=== PATIENT | female | born 1975 | race Caucasian/White ===

== ENCOUNTER 2018-01-27 13:32 | Emergency (ER) | payer MEDICAID ==
[~2018-01-27] VITALS: Ht 162.6 cm; Wt 55.0 kg
[~2018-01-27 13:32] MED LIST: [UNRECOGNIZED DRUG - REMARK]
[2018-01-27 15:19] LABS: BASOPHILS % 1.1 % (0.0-2.0); EOSINOPHILS % 2.7 % (0.0-5.0); HEMATOCRIT. 25.5 % (36.0-48.0); HEMOGLOBIN. 8.5 g/dL (12.0-16.0); LYMPHOCYTES % 22.7 % (20.0-50.0); MEAN CORPUSCULAR HEMOGLOBIN 30.1 pg (28.0-32.0); MEAN CORPUSCULAR VOLUME 90.2 fL (81.0-99.0); MEAN PLATELET VOLUME 7.9 fl (7.4-10.4); MONOCYTES % 7.9 % (2.0-8.0); NEUTROPHILS % 65.6 % (40.0-76.0); PLATELET 272 x1000/uL (130-400); RED BLOOD CELL COUNT 2.83 mill/uL (4.2-5.4); RED CELL DISTRIBUTION WIDTH 15.5 % (11.6-14.6)
[2018-01-27 15:25] LABS: CHLORIDE 108 mEq/L (98-107)
[2018-01-27 15:27] LABS: PROTHROMBIN TIME 10.5 sec (9.4-11.6)
[2018-01-27 15:36] LABS: B-HCG QUANTITATIVE < 1 mIU/mL (<3)
[2018-01-28 08:59] VITALS: BP 107/59
== END 2018-01-28 09:04 | disposition home or self-care (01) ==
LOC: ER 16:05
DX: N93.9 Abnormal uterine and vaginal bleeding, unspecified (principal); R10.2 Pelvic and perineal pain
CPT/HCPCS: 36415; 76830; 76856; 80053; 83690; 84702; 85025; 85610; 86850; 86900; 93005; 99285

== ENCOUNTER 2019-04-05 17:22 | Emergency (ER) | payer MEDICAID | END 2019-04-05 18:48 | disposition left against medical advice (07) | LOC: ER 17:22 | DX: N89.8 Other specified noninflammatory disorders of vagina (principal); Z53.21 Procedure and treatment not carried out due to patient leaving prior to being seen by health care provider ==

== ENCOUNTER 2019-06-10 17:07 | Emergency (ER) | payer MEDICAID ==
[~2019-06-10] VITALS: Ht 167.6 cm; Wt 80.0 kg
[2019-06-10 17:50] VITALS: BP 119/80
== END 2019-06-10 18:26 | disposition left against medical advice (07) ==
LOC: ER 17:07
DX: Z11.3 Encounter for screening for infections with a predominantly sexual mode of transmission (principal); Z53.21 Procedure and treatment not carried out due to patient leaving prior to being seen by health care provider

== ENCOUNTER 2019-06-29 23:53 | Emergency (ER) | payer MEDICAID ==
[~2019-06-29] VITALS: Ht 152.4 cm; Wt 55.4 kg
[2019-06-29 23:58] VITALS: BP 127/64
[2019-06-30] MEDS ORDERED: METRONIDAZOLE 500MG TABLET PO SCH (04:00)
== END 2019-06-30 05:39 | disposition home or self-care (01) ==
LOC: ER 23:53
DX: N94.6 Dysmenorrhea, unspecified (principal); Z76.0 Encounter for issue of repeat prescription; N89.8 Other specified noninflammatory disorders of vagina; F12.10 Cannabis abuse, uncomplicated; F15.10 Other stimulant abuse, uncomplicated; F20.9 Schizophrenia, unspecified; F17.200 Nicotine dependence, unspecified, uncomplicated
CPT/HCPCS: 81025; 99283

== ENCOUNTER 2019-09-15 16:53 | Emergency (ER) | payer MEDICAID ==
[~2019-09-15] VITALS: Ht 152.4 cm; Wt 54.9 kg
[2019-09-15 17:22] VITALS: BP 109/58
== END 2019-09-15 21:56 | disposition left against medical advice (07) ==
LOC: ER 16:53
DX: F41.9 Anxiety disorder, unspecified (principal); F31.9 Bipolar disorder, unspecified; I10 Essential (primary) hypertension; F20.9 Schizophrenia, unspecified; F15.10 Other stimulant abuse, uncomplicated; Z98.890 Other specified postprocedural states
CPT/HCPCS: 99281

== ENCOUNTER 2019-10-06 07:12 | Emergency (ER) | payer MEDICAID ==
[~2019-10-06] VITALS: Ht 152.4 cm; Wt 53.0 kg
[2019-10-06 07:48] VITALS: BP 114/76
[2019-10-06] MEDS ORDERED: IBUPROFEN 600MG TABLET PO ONE (08:15)
[2019-10-06] MEDS ORDERED: VALACYCLOVIR HCL 500MG TABLET PO SCH (14:00)
== END 2019-10-06 09:04 | disposition home or self-care (01) ==
LOC: ER 07:12
DX: B02.9 Zoster without complications (principal); M79.672 Pain in left foot; I10 Essential (primary) hypertension; F15.10 Other stimulant abuse, uncomplicated; Z98.890 Other specified postprocedural states
CPT/HCPCS: 99283

== ENCOUNTER 2019-11-28 23:05 | Emergency (ER) | payer MEDICAID ==
[~2019-11-28] VITALS: Ht 152.4 cm; Wt 54.0 kg
[2019-11-28 23:26] VITALS: BP 126/92
== END 2019-11-29 00:15 | disposition left against medical advice (07) ==
LOC: ER 23:05
DX: R21 Rash and other nonspecific skin eruption (principal); Z53.21 Procedure and treatment not carried out due to patient leaving prior to being seen by health care provider